=== PATIENT | male | born 1985 | race Caucasian/White ===

== ENCOUNTER 2022-02-08 19:56 | Emergency (ER) | payer BC, SELFPAY ==
[2022-02-08 19:57] VITALS: BP 160/87; PULSE 85; RESP 15; TEMP 36.4; O2SAT 97; BMI 30.7
--- NOTE | 2022-02-08 20:33 | RAD_ITS ---
STUDY: X-RAY - LEFT WRIST REASON FOR EXAM: Male, 36 years old. Fell out of a tree. Medial TECHNIQUE: 3 view(s) of the wrist were obtained. COMPARISON: None. FINDINGS: There is a lucency across the distal metaphysis suggesting nondisplaced fracture. Normal ulna. Normal radiocarpal articulation. Normal distal radioulnar articulation. Normal carpal bones. Normal carpal articulations. Normal carpometacarpal articulation of the thumb. Normal second through fifth carpometacarpal articulations. Normal visualized metacarpal bones. The soft tissue structures are unremarkable. RAD/Wrist min 3 Views IMPRESSION: Question nondisplaced fracture of the distal radius. Electronically Signed: Viet Chaney DO at 21:12 EDT ,
--- NOTE | 2022-02-08 20:38 | RAD_ITS ---
STUDY: X-RAY - LEFT FOOT CLINICAL: Male, 36 years old. Injury. Fell out of a tree today. Left foot pain. TECHNIQUE: 3 view(s) of the foot. COMPARISON: None. FINDINGS: Normal talus, calcaneus, and tarsal bones. Normal visualized subtalar, talonavicular, calcaneocuboid, tarsal and tarsometatarsal articulations. Normal metatarsi. Normal metatarsophalangeal joint of the great toe. Normal tibial and fibular sesamoid bones. Normal interphalangeal joint of the great toe. Normal phalanges of the great toe. Normal second through fifth metatarsophalangeal joints. Normal interphalangeal joints and phalanges of the lesser toes. The soft tissue structures are unremarkable. RAD/Foot min 3 Views IMPRESSION: No acute fracture or dislocation of the left foot. Electronically Signed: Viet Chaney DO at 21:13 EDT ,
--- NOTE | 2022-02-08 20:56 | EDS_ITS ---
HPI HPI - Fall History of Present Illness Chief Complaint: Fall Informant: patient and spouse/S.O. Narrative Narrative: 36-year-old male was up on a ladder cutting down tree and the ladder collapsed. He injured the dorsum of the left foot along the metatarsal heads. He did have steel toed boots on. He also notes pain in the left wrist. He denies any other injuries. He notes that the left wrist he is still move his fingers but to bend the wrist is very painful. No head injury denies neck or back pain [facility] Medical History ADHD (attention deficit hyperactivity disorder) Home Medications No Known/Unobtainable [No Known Home Medications] 01/11/17 [History Last Taken Unknown] Allergy/AdvReac Type Severity Reaction Status Date / Time No Known Allergies Allergy Verified 01/11/17 13:13 Surgical History Hx of tonsillectomy Social History (Updated 02/08/22 @ 20:[address] Elkin Ervin DO) Smoking Status: Never smoker substance use type: does not use EXAM Physical Exam Const Vital Signs: 02/08/22 19:57 02/08/22 20:07 Temperature 97.6 F L Temperature Source Temporal Pulse Rate 85 Respiratory Rate 15 Respiratory Effort Normal Non-Labored Respiratory Depth Normal Respiratory Pattern Normal Blood Pressure 160/87 H Blood Pressure Mean 111 Pulse Ox 97 Oxygen Delivery Method Room Air Room Air Positive well nourished and well developed General Appearance ED: well developed HEENT Reports normocephalic, head/scalp atraumatic and moist mucous membranes Eyes PERRL and EOMs intact bilaterally Neck no lymphadenopathy, supple and no JVD Resp normal respiratory effort and clear to auscultation bilaterally Cardio regular rate, regular rhythm and no murmurs GI normal to inspection, nondistended, normoactive bowel sounds and non-tender Palpation: soft Back/Spine no CVA tenderness and normal ROM Extremity Extremity Narrative: Left foot demonstrates some erythema along the dorsal surface and tenderness along the metatarsal heads The left wrist demonstrates swelling particularly over the radius limited range of motion due to pain. Neurovascular intact distal. There are no open wounds. General Extremety ED: Negative for edema General Extremity: Negative for edema Neuro oriented x3 and CN's II-XII intact bilaterally Sensorium / Orientation: alert Motor Exam: strength 5/5 throughout Psych mental status grossly normal Mood & Affect: Negative for depressed or tearful Skin no rashes or lesions noted and no wounds MDM MDM MDM Narrative Medical decision making narrative: My interpretation of the plain films of the left foot is no acute fracture. My interpretation of the plain films of the left wrist is an acute fracture of the distal radius. Nondisplaced. Patient was placed in a plaster splint made by this physician. Neurovascularly intact pre and post application. Patient will follow-up with orthopedics. Dr. Gtz is on [place]. Radiography Diagnostic Testing: Clinical Impression(s) from Imaging Studies Wrist X-Ray 02/08/22 20:33 IMPRESSION: Question nondisplaced fracture of the distal radius. Electronically Signed: Viet Chaney DO at 21:12 EDT Reading Location ID and State: [place] / [place] Tel [phone], Service support , Foot X-Ray 02/08/22 20:38 IMPRESSION: No acute fracture or dislocation of the left foot. Electronically Signed: Viet Chaney DO at 21:13 EDT Reading Location ID and State: [place] / [place] Tel [phone], Service support , Discharge Plan Triage Chief Complaint: Fall ED Provider: Elkin Ervin Dx/Rx/DC Orders Clinical Impression: Fall, Distal radius fracture, left, Contusion of foot, left Instructions: Wrist Fracture, ED Foot Contusion Prescriptions: No Action No Known Home Medications Primary Care Provider: Cherelle Brennan Referrals: Cherelle Brennan MD [Primary Care Provider] - Kwaku Gtz DO [STAFF PHYSICIAN] - As soon as possible Disposition Disposition: Home, Self Care
--- NOTE | 2022-02-08 22:07 | RAD_ITS ---
STUDY: X-RAY - LEFT HAND, ATTENTION INDEX FINGER REASON FOR EXAM: Male, 36 years old. Injured falling from tree. Pain near PIP joint. TECHNIQUE: 3 view(s) of the finger were obtained. COMPARISON: None. FINDINGS: Scalloped defect distal aspect of the distal phalanx, ulnar aspect. No apparent acute fracture. Alignment anatomic. Normal bony mineralization. RAD/Finger(s) Min 2 Views IMPRESSION: No acute finding. Chronic appearing defect of the tip of the distal phalanx most likely sequela of remote injury. Electronically Signed: Pedrito Rosas MD at 22:32 EDT Reading Location ID and State: [facility] / [place] Tel , Service support ,
== END 2022-02-08 22:22 | disposition home or self-care (01) ==
PROVIDERS: Emergency Provider Emergency Medicine; PCP Family Medicine; Visit Provider Emergency Medicine
DX: S52.502A Unspecified fracture of the lower end of left radius, initial encounter for closed fracture (principal); S90.32XA Contusion of left foot, initial encounter; W19.XXXA Unspecified fall, initial encounter
CPT/HCPCS: 73110; 73140; 73630; 99282

== ENCOUNTER 2025-01-16 15:33 | Emergency (ER) | payer BC, SELFPAY ==
[2025-01-16 15:34] VITALS: BP 154/88; PULSE 111; RESP 16; TEMP 36.3; O2SAT 98; BMI 34.8
[2025-01-16] MEDS: Diphth,Pertuss(Acell),Tet Vac 0.5 ML Vial IM (16:58)
--- NOTE | 2025-01-16 17:01 | EX.ED.GENINJ ---
HPI <DEREK Erickson - Last Filed: 01/16/25 21:19> History of Present Illness Chief Complaint: Laceration Narrative Narrative: Patient presenting today with a laceration to his left pinky finger after he was working outside with a chainsaw and accidentally hit it against his finger. He is unsure of his last tetanus update. He is not on any blood thinners, he denies any other injury. He is right-handed. PFSH <DEREK Erickson - Last Filed: 01/16/25 21:19> [facility] Medical History ADHD (attention deficit hyperactivity disorder) Home Medications ?Medication ?Instructions ?Recorded ?Last Taken ?Type No Known/Unobtainable [No Known 01/11/17 Unknown History Home Medications] Allergy/AdvReac Type Severity Reaction Status Date / Time ibuprofen Allergy Severe Hives Verified 01/16/25 15:37 Penicillins Allergy Severe hives Verified 01/16/25 15:37 Surgical History Hx of tonsillectomy Social History Smoking Status: Never smoker alcohol intake: current alcohol intake frequency: a few times a week substance use type: does not use ROS <DEREK Erickson - Last Filed: 01/16/25 21:19> ROS ED Constitutional Constitutional ED: Denies chills or fever(s) Musculoskeletal Musculoskeletal: Denies arthralgias Integumentary Reports laceration Neurologic Neurologic: Denies paresthesias EXAM <DEREK Erickson - Last Filed: 01/16/25 21:19> Physical Exam Const Vital Signs: 01/16/25 15:34 Temperature 97.4 F L Temperature Source Oral Pulse Rate 111 H Respiratory Rate 16 Blood Pressure 154/88 H Blood Pressure Mean 110 Pulse Ox 98 Oxygen Delivery Method Room Air Positive well nourished, well developed and no apparent distress General Appearance ED: well developed HEENT Reports normocephalic and head/scalp atraumatic Mouth ED: Yes moist mucous membranes normal Eyes PERRL and EOMs intact bilaterally Neck full ROM and supple Chest Wall inspection of chest normal Resp normal respiratory effort and clear to auscultation bilaterally Cardio regular rate and regular rhythm Back/Spine normal ROM Extremity full ROM Extremity Narrative: 2 linear lacerations to the dorsal aspect of the left pinky finger at the proximal phalanx, 1 is about 1 cm full-thickness and linear, the other is 0.5 cm full-thickness and linear. No active bleeding. Left radial pulse 2+, good cap refill, sensation intact. Full flexion and extension at the MCP, PIP, and DIP joints, no obvious tendon injury. Neuro oriented x3, CN's II-XII intact bilaterally, moves all extremities, no focal motor deficits and no sensory deficits noted Sensorium / Orientation: awake and alert Psych mental status grossly normal and thought process normal Skin Skin Narrative: Aside from laceration to the left pinky no other rashes or lesions noted <Dr. Nat Marquez, - Last Filed: 01/19/25 15:10> Physical Exam Const Vital Signs: 01/16/25 15:34 Temperature 97.4 F L Temperature Source Oral Pulse Rate 111 H Respiratory Rate 16 Blood Pressure 154/88 H Blood Pressure Mean 110 Pulse Ox 98 Oxygen Delivery Method Room Air PROC <DEREK Erickson - Last Filed: 01/16/25 21:19> Procedures Lacerations Laceration: Length: 0.59 in Depth: Sub Q Shape: Linear Laceration repair: Digital block, Irrigated and Lidocaine Number of Sutures/Kristopher: 8 Suture Information: Ethilon, Simple and 4-0 [facility] <DEREK Erickson - Last Filed: 01/16/25 21:19> [facility] Narrative Medical decision making narrative: Patient presenting today due to a laceration to the left pinky finger proximal phalanx from a chainsaw that occurred this afternoon. He has full range of motion to his finger. This will require suture repair. The wounds were copiously irrigated with saline and cleaned with chlorhexidine. The area was sutured, he tolerated procedure well. Tetanus was updated. Wound bandaged with bacitracin ointment. He was given a finger splint to prevent him bending excessively. Wound care instructions were discussed. He is to have sutures removed in 7 days. He will be discharged home in stable condition. <Dr. Nat Marquez, - Last Filed: 01/19/25 15:10> [facility] Narrative Medical decision making narrative: Patient presenting today due to a laceration to the left pinky finger proximal phalanx from a chainsaw that occurred this afternoon. He has full range of motion to his finger. This will require suture repair. The wounds were copiously irrigated with saline and cleaned with chlorhexidine. The area was sutured, he tolerated procedure well. Tetanus was updated. Wound bandaged with bacitracin ointment. He was given a finger splint to prevent him bending excessively. Wound care instructions were discussed. He is to have sutures removed in 7 days. He will be discharged home in stable condition. I have personally performed a face to face assessment of the patient and have reviewed the MO Note. I performed a substantive portion of the visit including all aspects of the following. My jackson findings include: History is Patient is a 39-year-old [id number] male presenting with laceration to his left pinky finger while using a chainsaw this morning. It is at the base of the pinky finger and he has preserved range of motion. Clinically low suspicion for any flexor or extensor tendon injury. He sensation intact. Bleeding is controlled. Laceration repair performed by PA. Patient given wound care instructions. Given wound low suspicion for underlying fracture and do not think x-ray is indicated. Low suspicion for foreign body based on mechanism of injury. Tetanus updated. Discharged home in stable improved condition. Other additions or changes: [None] Discharge Plan Triage Chief Complaint: Laceration ED Midlevel Provider: Nona Dunham ED Provider: Nat Marquez Dx/Rx/DC Orders Clinical Impression: Finger laceration, Contact with chainsaw as cause of accidental injury Instructions: ED Laceration, Hand: All Closures Prescriptions: No Action No Known Home Medications Primary Care Provider: Cherelle Brennan Referrals: Cherelle Brennan MD [Primary Care Provider] - 7 Days for suture removal Activity Restrictions/Additional Instructions: Have sutures removed in 7 days, return for any signs of infection. Print Language: Macanese Disposition Disposition: Home, Self Care Discharge Date/Time: 01/16/25 17:54
[2025-01-16] MEDS: Lidocaine 1% (20 ml mdv) 20 ML Vial 10 ML INFILT (17:03)
== END 2025-01-16 17:54 | disposition home or self-care (01) ==
PROVIDERS: Emergency Provider Emergency Medicine; PCP Family Medicine; Visit Provider Emergency Medicine
DX: S61.217A Laceration without foreign body of left little finger without damage to nail, initial encounter (principal); W29.3XXA Contact with powered garden and outdoor hand tools and machinery, initial encounter; Z23 Encounter for immunization
CPT/HCPCS: 12001; 90715; 99284